=== PATIENT | male | born 1950 | race Hispanic/Latino ===

== ENCOUNTER 2017-06-18 10:18 | Emergency (ER) | payer MEDICARE ==
[~2017-06-18] VITALS: Ht 182.9 cm; Wt 112.5 kg
[~2017-06-18 10:18] MED LIST: Z.0.LIPITOR80 MG PO; Z.0.LISINOPRIL40 MG PO; Z.0.TRICOR145 MG PO
[2017-06-18 10:56] LABS: BASOPHILS # (AUTO) 0.1 (0.0-0.1); BASOPHILS % 0.5 % (0.0-1.0); EOSINOPHILS # (AUTO) 0.2 (0.0-0.4); EOSINOPHILS % 1.4 % (0.0-6.0); HEMATOCRIT 40.5 % (38.2-49.6); HEMOGLOBIN 13.3 g/dL (14.0-18.0); LYMPHOCYTES % 29.2 % (18.0-39.1); MEAN CORPUSCULAR HEMOGLOBIN 30.8 pg (28-32); MEAN CORPUSCULAR HGB CONC 32.8 g/dL (31-35); MEAN CORPUSCULAR VOLUME 93.8 fL (81-99); MONOCYTES # (AUTO) 0.6 (0.2-0.8); MONOCYTES % 5.8 % (4.4-11.3); NEUTROPHILS # (AUTO) 6.2 (2.1-6.9); NEUTROPHILS % 59.2 % (38.7-80.0); PLATELET COUNT 248 x10e3/uL (140-360); RED BLOOD COUNT 4.32 x10e6/uL (4.3-5.7); RED CELL DISTRIBUTION WIDTH 13.6 % (11.7-14.4)
[2017-06-18 11:08] LABS: INR 0.83; PARTIAL THROMBOPLASTIN TIME 23.4 seconds (23.8-35.5); PROTHROMBIN TIME 11.8 seconds (11.9-14.5)
[2017-06-18 11:19] LABS: ALANINE AMINOTRANSFERASE 28 IU/L (0-55); ALBUMIN 3.8 g/dL (3.5-5.0); ALBUMIN/GLOBULIN RATIO 1.2 (0.8-2.0); ALKALINE PHOSPHATASE 57 IU/L (40-150); ANION GAP 11.6 mmol/L (8-16); BLOOD UREA NITROGEN 20 mg/dL (7-26); BUN/CREATININE RATIO 17 (6-25); CARBON DIOXIDE 29 mmol/L (22-29); CHLORIDE 103 mmol/L (98-107); CREATINE KINASE 116 IU/L (30-200); CREATININE, SERUM 1.19 mg/dL (0.72-1.25); EST GLOMERULAR FILTRATION RATE > 60 ML/MIN (60-); GLUCOSE 113 mg/dL (74-118); POTASSIUM 3.6 mmol/L (3.5-5.1); SODIUM 140 mmol/L (136-145)
[2017-06-18 11:25] LABS: TROPONIN I 0.035 ng/mL (0-0.300)
--- NOTE | 2017-06-18 11:28 | Diagnostic Imaging Report ---
PROCEDURE: CHEST SINGLE (PORTABLE) COMPARISON: Patients [facility], DX, CHEST SINGLE (PORTABLE), 06/19/2015, 9:06. INDICATIONS: STATUS POST FALL, DIZZINESS FINDINGS: LUNGS: Increased pulmonary vascularity compatible with mild pulmonary congestion. Right basilar atelectasis. PLEURA: No effusions or pneumothorax. HEART \T\ MEDIASTINUM: The heart is mildly enlarged. BONES \T\ SOFT TISSUES: No acute findings. No obvious rib fractures. CONCLUSION: Mild pulmonary vascular congestion. Eugene Cleaning D.O. Dictated by: Eugene Cleaning D.O. on 06/18/2017 at 11:35 Electronically approved by: Eugene Cleaning D.O. on 06/18/2017 at 11:35
--- NOTE | 2017-06-18 11:28 | Diagnostic Imaging Report ---
EXAMINATION: Head and cervical spine CT without contrast. HISTORY: Status post fall 3 days ago, head trauma on the right side of the head, pain, dizziness COMPARISON: Head CT on 06/19/2015 TECHNIQUE: Multidetector axial images were obtained without contrast from the foramen magnum to the vertex and through the cervical spine. The images were reconstructed using brain and bone algorithms. Thin section brain images were reformatted into coronal and sagittal planes. HEAD CT FINDINGS: Skull: No lytic or blastic lesions. No fractures. Parenchyma: Normal. No mass, hemorrhage or CT evidence of acute vascular insult. Brain volume: Normal for age. Ventricles: No hydrocephalus. Stable Cavum Veli interpositi which represents a normal variation of the anatomy. Arteries: No density suggestive of thrombus. Dural sinuses: No abnormal density. Extra-axial spaces: No abnormal density. Foramen magnum: No mass, Chiari malformation, or basilar invagination. Sella: No obvious mass. Paranasal/mastoid sinuses: Imaged portions unremarkable. CERVICAL SPINE CT FINDINGS: Alignment:Normal alignment and lordosis. Soft tissues: Normal. Ossification of the nuchal ligament. Vertebrae: Normal height and density. No acute fracture, infection or neoplasm. Intervertebral disk degenerative changes: C5-C6: Uncovertebral and facet arthrosis on the left result in severe left foraminal stenoses. Minimal degenerative anterolistheses. IMPRESSION: Head CT: No acute post traumatic intracranial abnormality, particularly no hemorrhage. Cervical spine CT: 1. No acute fractures or dislocations. 2. Chronic severe degenerative foraminal stenosis on the left at C5-C6. Note: Acute postraumatic spinal cord, vascular or ligamentous injuries cannot be excluded on the basis of the current examination. Signed by: Dr. Delia Bynum M.D. on 06/18/2017 11:24 AM
--- NOTE | 2017-06-18 11:45 | Diagnostic Imaging Report ---
PROCEDURE:HAND RIGHT 3 VIEWS AP \T\ LAT COMPARISON:None. INDICATIONS:STATUS POST FALL, RIGHT HAND PAIN FINDINGS: Several bony densities are situated between the proximal aspects of the fourth and fifth metacarpal heads. Findings likely represent small avulsion fractures; age indeterminate. Clinical correlation as to focal site of pain is suggested . There are no dislocations, lytic or blastic lesions. Scattered interphalangeal degenerative changes are present. The bones are well-mineralized. The soft-tissues are unremarkable. CONCLUSION: Bony densities situated between the proximal aspects of the fourth and fifth metacarpals. Eugene Cleaning D.O. Dictated by: Eugene Cleaning D.O. on 06/18/2017 at 11:53 Electronically approved by: Eugene Cleaning D.O. on 06/18/2017 at 11:53
[2017-06-18 13:06] LABS: EOSINOPHILS % (MANUAL) 4 % (0-7); LYMPHOCYTES % (MANUAL) 28 % (19-48); MONOCYTES % (MANUAL) 16 % (3.4-9.0); NEUTROPHILS % (MANUAL) 51 % (40-74); RBC MORPHOLOGY COMMENT NORMAL
[2017-06-18 13:07] LABS: PLATELET ESTIMATE ADEQUATE; PLATELET MORPHOLOGY COMMENT NORMAL
[2017-06-18 13:56] VITALS: BP 128/82
== END 2017-06-18 14:04 | disposition home or self-care (01) ==
LOC: ER 10:18
DX: S06.0X0A Concussion without loss of consciousness, initial encounter (principal); S00.83XA Contusion of other part of head, initial encounter; R42 Dizziness and giddiness; M79.641 Pain in right hand; W18.39XA Other fall on same level, initial encounter; Y92.008 Other place in unspecified non-institutional (private) residence as the place of occurrence of the external cause; I10 Essential (primary) hypertension; K21.9 Gastro-esophageal reflux disease without esophagitis
CPT/HCPCS: 36415; 70450; 71010; 72125; 80053; 82550; 82553; 84484; 85025; 85610; 85730; 93005; 99284

== ENCOUNTER 2018-04-26 14:09 | Emergency (ER) | payer MEDICARE ==
[~2018-04-26] VITALS: Ht 182.9 cm; Wt 112.5 kg
--- OUTSIDE RECORDS SUMMARY | 2018-04-26 14:12 | XMS REPORT ---
Author Author [facility] Address Unknown Phone Unavailable Care Team Providers Care Forming Acid Dumper Name Role Phone Pablo SAUCEDO Unavailable Unavailable Problems This patient has no known problems. Allergies, Adverse Reactions, Alerts This patient has no known allergies or adverse reactions. Medications This patient has no known medications. Results Test Description Test Time Test Comments Text Results Atomic Results Result Comments HAND 3+ VIEWS RIGHT [place] [id number] [place] [id number] Patient Name: PRETTY GUAMAN MR #: [id number] : 1950 Age/Sex: 67/M Req #: [id number] Adm Physician: Ordered by: LELA RIGGS WRESTLING COACH Report #: [id number] Location: ER Room/Bed: Procedure: [id number] DX/HAND 3+ VIEWS RIGHT Exam Date: 06/18/17 Exam Time: 1105 REPORT STATUS: Signed PROCEDURE: HAND RIGHT 3 VIEWS AP T LAT COMPARISON: None. INDICATIONS: STATUS POST FALL, RIGHT HAND PAIN FINDINGS: Several bony densities are situated between the proximal aspects of the fourth and fifth metacarpal heads. Findings likely represent small avulsion fractures; age indeterminate. Clinical correlation as to focal site of pain is suggested . There are no dislocations, lytic or blastic lesions. Scattered interphalangeal degenerative changes are present. The bones are well-mineralized. The soft-tissues are unremarkable. CONCLUSION: Bony densities situated between the proximal aspects of the fourth and fifth metacarpals. Gerard Cleaning D.O. Dictated by: Gerard Cleaning D.O. on 06/18/2017 at 11:53 Electronically approved by: Gerard Cleaning D.O. on 06/18/2017 at 11:53 Dictated By: GERARD CLEANING DO 1153 Transcribed By: ALEXX on 06/18/17 1153 COPY TO: LELA RIGGS NP CT CERVICAL SPINE WO [place] [address] Patient Name: PRETTY GUAMAN MR #: [id number] : 1950 Age/Sex: 67/M Req #: [id number] Adm Physician: Ordered by: LELA RIGGS WRESTLING COACH Report #: [id number] Location: ER Room/Bed: Procedure: [id number] CT/CT CERVICAL SPINE WO Exam Date: 06/18/17 Exam Time: 1045 REPORT STATUS: Signed EXAMINATION: Head and cervical spine CT without contrast. HISTORY: Status post fall 3 days ago, head trauma on the right side of the head, pain, dizziness COMPARISON: Head CT on 06/19/2015 TECHNIQUE: Multidetector axial images were obtained without contrast from the foramen magnum to the vertex and through the cervical spine. The images were reconstructed using brain and bone algorithms. Thin section brain images were reformatted into coronal and sagittal planes. HEAD CT FINDINGS: Skull: No lytic or blastic lesions. No fractures. Parenchyma: Normal. No mass, hemorrhage or CT evidence of acute vascular insult. Brain volume: Normal for age. Ventricles: No hydrocephalus. Stable Cavum Veli interpositi which represents a normal variation of the anatomy. Arteries: No density suggestive of thrombus. Dural sinuses: No abnormal density. Extra-axial spaces: No abnormal density. Foramen magnum: No mass, Chiari malformation, or basilar invagination. Sella: No obvious mass. Paranasal/mastoid sinuses: Imaged portions unremarkable. CERVICAL SPINE CT FINDINGS: Alignment:Normal alignment and lordosis. Soft tissues: Normal. Ossification of the nuchal ligament. Vertebrae: Normal height and density. No acute fracture, infection or neoplasm. Intervertebral disk degenerative changes: C5-C6: Uncovertebral and facet arthrosis on the left result in severe left foraminal stenoses. Minimal degenerative anterolistheses. IMPRESSION: Head CT: No acute post traumatic intracranial abnormality, particularly no hemorrhage. Cervical spine CT: 1. No acute fractures or dislocations. 2. Chronic severe degenerative foraminal stenosis on the left at C5-C6. Note: Acute postraumatic spinal cord, vascular or ligamentous injuries cannot be excluded on the basis of the current examination. Signed by: Dr. Francy Bynum M.D. on 06/18/2017 11:24 AM Dictated By: FRANCY BYNUM MD 23 Transcribed By: ASHLEY on 06/18/171123 COPY TO: LELA RIGGS NP CT BRAIN WO [place] [address] Patient Name: PRETTY GUAMAN MR #: [id number] : 1950 Age/Sex: 67/M Req #: [id number] Adm Physician: Ordered by: LELA RIGGS NP Report #: [id number] Location: Room/Bed: Procedure: [id number] CT/CT BRAIN WO Exam Date: 06/18/17 Exam Time: 1045 REPORT STATUS: Signed EXAMINATION: Head and cervical spine CT without contrast. HISTORY: Status post fall 3 days ago, head trauma on the right side of the head, pain, dizziness COMPARISON: Head CT on 06/19/2015 TECHNIQUE: Multidetector axial images were obtained without contrast from the foramen magnum to the vertex and through the cervical spine. The images were reconstructed using brain and bone algorithms. Thin section brain images were reformatted into coronal and sagittal planes. HEAD CT FINDINGS: Skull: No lytic or blastic lesions. No fractures. Parenchyma: Normal. No mass, hemorrhage or CT evidence of acute vascular insult. Brain volume: Normal for age. Ventricles: No hydrocephalus. Stable Cavum Veli interpositi which represents a normal variation of the anatomy. Josselyn ena: No density suggestive of thrombus. Dural sinuses: No abnormal density. Extra-axial spaces: No abnormal density. Foramen magnum: No mass, Chiari malformation, or basilar invagination. Sella: No obvious mass. Paranasal/mastoid sinuses: Imaged portions unremarkable. CERVICAL SPINE CT FINDINGS: Alignment:Normal alignment and lordosis. Soft tissues: Normal. Ossification of the nuchal ligament. Vertebrae: Normal height and density. No acute fracture, infection or neoplasm. Intervertebral disk degenerative changes: C5-C6: Uncovertebral and facet arthrosis on the left result in severe left foraminal stenoses. Minimal degenerative anterolistheses. IMPRESSION: Head CT: No acute post traumatic intracranial abnormality, particularly no hemorrhage. Cervical spine CT: 1. No acute fractures or dislocations. 2. Chronic severe degenerative foraminal stenosis on the left at C5-C6. Note: Acute postraumatic spinal cord, vascular or ligamentous injuries cannot be excluded on the basis of the current examination. Signed by: Dr. Francy Bynum M.D. on 06/18/2017 11:24 AM Dictated By: FRANCY BYNUM MD 23 Transcribed By: ASHLEY on 06/18/171123 COPY TO: LELA RIGGS WRESTLING COACH [facility] (PORTABLE) [place] [address] Patient Name: PRETTY GUAMAN MR #: [id number] : 1950 Age/Sex: 67/M Req #: [id number] [facility] Physician: Ordered by: LELA RIGGS NP Report #: [id number] Location: ER Room/Bed: Procedure: [id number] DX/CHEST SINGLE (PORTABLE) Exam Date: 06/18/17 Exam Time: 1105 REPORT STATUS: Signed PROCEDURE: CHEST SINGLE (PORTABLE) COMPARISON: [facility], DX, CHEST SINGLE (PORTABLE), 06/19/2015, 9:06. INDICATIONS: STATUS POST FALL, DIZZINESS FINDINGS: LUNGS: Increased pulmonary vascularity compatible with mild pulmonary congestion. Right basilar atelectasis. PLEURA: No effusions or pneumothorax. HEART T MEDIASTINUM: The heart is mildly enlarged. BONES T SOFT TISSUES: No acute findings. No obvious rib fractures. CONCLUSION: Mild pulmonary vascular congestion. Gerard Cleaning D.O. Dictated by: Gerard Cleaning D.O. on 06/18/2017 at 11:35 Electronically approved by: Gerard Cleaning D.O. on 06/18/2017 at 11:35 Dictated By: GERARD CLEANING DO 1135 Transcribed By: ALEXX on 06/18/17 1138 COPY TO: LELA RIGGS NP
[2018-04-26] MEDS ORDERED: CEFTRIAXONE SOD 1 GM VIAL IM NR (14:30)
[2018-04-26] MEDS ORDERED: SODIUM CHLORIDE 0.9% 500ML 500 ML IV ONE (14:30)
[2018-04-26] MEDS ORDERED: ACETAMINOPHEN 1000 MG/100 ML IV NR (14:30)
[2018-04-26 15:19] LABS: BASOPHILS % 0.7 % (0.0-1.0); EOSINOPHILS % 0.2 % (0.0-6.0); HEMATOCRIT 43.4 % (38.2-49.6); HEMOGLOBIN 14.7 g/dL (14.0-18.0); LYMPHOCYTES # (AUTO) 0.6 (1.0-3.2); LYMPHOCYTES % 14.3 % (18.0-39.1); MEAN CORPUSCULAR HEMOGLOBIN 31.5 pg (28-32); MEAN CORPUSCULAR HGB CONC 33.9 g/dL (31-35); MEAN CORPUSCULAR VOLUME 92.9 fL (81-99); MONOCYTES # (AUTO) 0.3 (0.2-0.8); MONOCYTES % 6.9 % (4.4-11.3); NEUTROPHILS # (AUTO) 3.1 (2.1-6.9); NEUTROPHILS % 75.9 % (38.7-80.0); PLATELET COUNT 133 x10e3/uL (140-360); RED BLOOD COUNT 4.67 x10e6/uL (4.3-5.7)
[2018-04-26 15:34] LABS: ALBUMIN 4.1 g/dL (3.5-5.0); ANION GAP 19.4 mmol/L (8-16); CALCIUM 9.3 mg/dL (8.4-10.2); CREATININE, SERUM 1.35 mg/dL (0.72-1.25); POTASSIUM 3.4 mmol/L (3.5-5.1)
[2018-04-26 15:41] LABS: CREATINE KINASE MB 0.5 ng/mL (0-5.0)
[2018-04-26 16:08] LABS: CLARITY,URINE CLEAR (CLEAR); COLOR,URINE YELLOW (YELLOW)
[2018-04-26 16:09] LABS: BACTERIA,URINE RARE /HPF; BILIRUBIN,URINE NEGATIVE (NEGATIVE); EPITHELIAL CELLS,URINE RARE /LPF; KETONES,URINE NEGATIVE (NEGATIVE); LEUKOCYTE ESTERASE ,URINE NEGATIVE (NEGATIVE); NITRITE,URINE NEGATIVE (NEGATIVE); PROTEIN,URINE DIPSTICK TRACE (NEGATIVE); RBC,URINE 0-5 /HPF (0-5); URINE UROBILINOGEN 0.2 mg/dL (0.2 - 1); WBC,URINE (MAN) 0-5 /HPF (0-5)
--- NOTE | 2018-04-26 17:14 | Diagnostic Imaging Report ---
EXAM: CT Abdomen and Pelvis WITH contrast INDICATION: ^abd ^[id number] ^[id number] COMPARISON: None. TECHNIQUE: Abdomen and pelvis were scanned utilizing a multidetector helical scanner from the lung base to the pubic symphysis after administration of IV contrast. Coronal and sagittal reformations were obtained. Routine protocol was performed. Scan was performed when during portal venous phase. IV CONTRAST: 100 mL of Isovue-370 ORAL CONTRAST: None RADIATION DOSE: Total DLP: 926.2 mGy*cm Estimated effective dose: (DLP x 0.015 x size factor) mSv COMPLICATIONS: None FINDINGS: LINES and TUBES: None. LOWER THORAX: Extensive coronary artery calcifications. Minimal atelectasis in both lung bases. HEPATOBILIARY: Diffuse hepatic steatosis. No focal hepatic lesions. No biliary ductal dilation. GALLBLADDER: No radio-opaque stones or sludge. No wall thickening. SPLEEN: No splenomegaly. PANCREAS: No focal masses or ductal dilatation. ADRENALS: No adrenal nodules KIDNEYS/URETERS: Kidneys enhance symmetrically. No hydronephrosis. No cystic or solid mass lesions. No stones. Mild nonspecific bilateral perinephric fat stranding. GI TRACT: No abnormal distention, wall thickening, or evidence of bowel obstruction. Appendix is not visualized. No inflammatory changes in the right lower quadrant. PELVIC ORGANS/BLADDER: Moderate distention of the urinary bladder without calcified stones. The prostate is normal in caliber associated with a few coarse calcifications. LYMPH NODES: No lymphadenopathy. VESSELS: Unremarkable. PERITONEUM / RETROPERITONEUM: No free air or fluid. BONES: Unremarkable. SOFT TISSUES: Unremarkable. IMPRESSION: No acute abnormality within the abdomen and pelvis. Signed by: Dr. Justyna Lay M.D. on 04/26/2018 5:10 PM
[2018-04-26] MEDS ORDERED: TYLENOL WITH C1 EACH PO (17:56)
[2018-04-26] MEDS ORDERED: CEFDINIR300 MG PO (17:56)
[2018-04-26] MEDS ORDERED: SODIUM CHLORIDE 0.9% 50ML 50 ML ONE (19:55)
[2018-04-26] MEDS ORDERED: IOPAMIDOL 370 MG/ML 200 ML INFUS..BTL INJ ONE (19:56)
[2018-05-02] MEDS ORDERED: FAMOTIDINE20 MG PO (07:11)
[2018-05-02] MEDS ORDERED: METFORMIN HCL500 MG PO (07:11)
[2018-05-02] MEDS ORDERED: CARBIDOPA-LEVO1 EAC1 PO (07:11)
== END 2018-04-26 18:17 | disposition home or self-care (01) ==
LOC: ER 14:09
DX: R50.9 Fever, unspecified (principal); R10.9 Unspecified abdominal pain; M54.5 Low back pain; N30.90 Cystitis, unspecified without hematuria
CPT/HCPCS: 36415; 74177; 80053; 81001; 82550; 82553; 83605; 84484; 85025; 87040; 87086; 99284; J0696; J7040; Q9967

== ENCOUNTER 2018-04-29 07:05 | Inpatient (IN) | payer MEDICARE ==
[~2018-04-29] VITALS: Ht 182.9 cm; Wt 112.9 kg
[~2018-04-29 07:05] MED LIST changes: +CEFDINIR300 MG PO; +TYLENOL WITH C1 EACH PO
[2018-04-29] MEDS ORDERED: SODIUM CHLORIDE 0.9% 1000ML 1,000 ML IV STA (07:16)
[2018-04-29] MEDS ORDERED: MORPHINE SULFATE INJ 4 MG/ML INJ IV STA (07:16)
[2018-04-29] MEDS ORDERED: ONDANSETRON HCL INJ 2 MG/ML VIAL IV ONE (07:30)
[2018-04-29] MEDS ORDERED: KETOROLAC TROMETHAMINE 30 MG/ML VIAL IV ONE (07:30)
[2018-04-29] MEDS ORDERED: FAMOTIDINE 20 MG/2 ML VIAL IV ONE (07:30)
[2018-04-29] MEDS ORDERED: DEXAMETHASONE SOD PHOS 10 MG/1 ML VIAL IV ONE (07:30)
[2018-04-29 08:21] LABS: BASOPHILS # (AUTO) 0.1 (0.0-0.1); EOSINOPHILS % 0.5 % (0.0-6.0); HEMATOCRIT 42.8 % (38.2-49.6); HEMOGLOBIN 14.3 g/dL (14.0-18.0); LYMPHOCYTES # (AUTO) 1.7 (1.0-3.2); LYMPHOCYTES % 29.6 % (18.0-39.1); MEAN CORPUSCULAR HEMOGLOBIN 30.8 pg (28-32); MEAN CORPUSCULAR HGB CONC 33.4 g/dL (31-35); MEAN CORPUSCULAR VOLUME 92.2 fL (81-99); MONOCYTES # (AUTO) 0.4 (0.2-0.8); MONOCYTES % 7.3 % (4.4-11.3); NEUTROPHILS # (AUTO) 3.5 (2.1-6.9); NEUTROPHILS % 60.4 % (38.7-80.0); RED BLOOD COUNT 4.64 x10e6/uL (4.3-5.7); RED CELL DISTRIBUTION WIDTH 12.9 % (11.7-14.4)
[2018-04-29 08:29] LABS: PLATELET COUNT 50 x10e3/uL (140-360)
[2018-04-29 08:44] LABS: ALBUMIN 3.6 g/dL (3.5-5.0); ANION GAP 13.7 mmol/L (8-16); CALCIUM 9.2 mg/dL (8.4-10.2); CREATININE, SERUM 1.44 mg/dL (0.72-1.25); POTASSIUM 3.7 mmol/L (3.5-5.1)
--- NOTE | 2018-04-29 08:52 | Diagnostic Imaging Report ---
PROCEDURE:X-RAY LUMBAR SPINE, TWO VIEWS COMPARISON:None. INDICATIONS:SCIATICA FINDINGS: There are 5 lumbar-type vertebral bodies. The vertebral bodies are well-aligned without evidence of spondylolisthesis. There are no fractures, lytic or blastic lesions. Mild disc space narrowing at L5-S1. Mild scattered osteophytosis of the spine. The sacroiliac joints are unremarkable. CONCLUSION: Mild degenerative changes of the spine. Eugene Cleaning D.O. Dictated by: Eugene Cleaning D.O. on 04/29/2018 at 9:01 Electronically approved by: Eugene Cleaning D.O. on 04/29/2018 at 9:01
--- NOTE | 2018-04-29 08:57 | Diagnostic Imaging Report ---
PROCEDURE:HIP RIGHT 2-3 VW (+/- PELVIS) COMPARISON:None. INDICATIONS:SCIATICA FINDINGS: BONES: Normal mineralization. No acute fracture or dislocation. Mild joint space narrowing involving both hips. As seen on the AP pelvis the joint space narrowing appears symmetric. No erosions or sclerosis of the SI joints. SOFT TISSUES:Negative. OTHER:Negative. CONCLUSION:Mild joint space narrowing. Eugene Cleaning D.O. Dictated by: Eugene Cleaning D.O. on 04/29/2018 at 9:05 Electronically approved by: Eugene Cleaning D.O. on 04/29/2018 at 9:05
[2018-04-29] MEDS ORDERED: LACTULOSE SYRUP 20 GM/30 ML UDC PO PRN (10:30)
[2018-04-29] MEDS ORDERED: DIPHENHYDRAMINE HCL INJ 50 MG/ML VIAL IV PRN (10:30)
[2018-04-29] MEDS ORDERED: HYDROCODONE/APAP 7.5MG-325MG 1 EA TAB PO PRN (10:30)
[2018-04-29] MEDS ORDERED: ENALAPRILAT IV INJ 1.25 MG/ML VIAL IV PRN (10:30)
[2018-04-29] MEDS ORDERED: ZOLPIDEM TARTRATE 5 MG TAB PO PRN (10:30)
[2018-04-29] MEDS ORDERED: CLONIDINE HCL 0.1 MG TAB PO PRN (10:30)
[2018-04-29] MEDS ORDERED: DIPHENHYDRAMINE HCL 25 MG CAP PO PRN (10:30)
[2018-04-29] MEDS ORDERED: IBUPROFEN 400 MG TAB PO PRN (10:30)
[2018-04-29] MEDS ORDERED: ONDANSETRON HCL INJ 2 MG/ML VIAL IV PRN (10:30)
[2018-04-29 10:42] LABS: CLARITY,URINE SL CLOUDY (CLEAR); COLOR,URINE YELLOW (YELLOW); KETONES,URINE NEGATIVE (NEGATIVE); LEUKOCYTE ESTERASE ,URINE NEGATIVE (NEGATIVE); NITRITE,URINE NEGATIVE (NEGATIVE); PROTEIN,URINE DIPSTICK 2+ (NEGATIVE); URINE UROBILINOGEN 0.2 mg/dL (0.2 - 1)
[2018-04-29 10:43] LABS: BILIRUBIN,URINE NEGATIVE (NEGATIVE)
[2018-04-29 10:45] LABS: BACTERIA,URINE RARE /HPF; EPITHELIAL CELLS,URINE RARE /LPF; RBC,URINE 0-5 /HPF (0-5)
[2018-04-29 10:46] LABS: MUCUS,URINE RARE (RARE)
[2018-04-29 13:38] LABS: BLAST CELLS % MANUAL 4; LYMPHOCYTES % (MANUAL) 15 % (19-48); MONOCYTES % (MANUAL) 7 % (3.4-9.0); NEUTROPHILS % (MANUAL) 66 % (40-74)
[2018-04-29 13:39] LABS: ANISOCYTOSIS SLIGHT; PLATELET ESTIMATE SLIGHTLY DECREASED; PLATELET MORPHOLOGY COMMENT NORMAL; POIKILOCYTOSIS SLIGHT; RBC MORPHOLOGY COMMENT NORMAL
[2018-04-29 13:50] VITALS: BP 158/82
[2018-04-29 13:52] VITALS: BP 158/82
[2018-04-29 15:50] VITALS: BP 139/76
[2018-04-29] MEDS: FAMOTIDINE 20 MG TAB PO SCH (16:55)
[2018-04-29] MEDS: MORPHINE SULFATE INJ 4 MG/ML INJ IV PRN (20:24)
--- NOTE | 2018-04-29 20:44 | Consultation ---
DATE OF CONSULTATION: April 29, 2018 REASON FOR CONSULTATION: Gait instability. HISTORY: The patient is a 68-year-old man, who presents with a 3-month history of low back pain, which does not radiate into the legs. However, he has been having instability of gait out of proportion to his back pain for the past 3 months. Apparently, on Friday, he felt that he could not move his legs and stand. He was brought to the emergency room over the weekend and was admitted. A lumbar CT was performed, which was relatively unremarkable. This was followed by lumbar MRI today, which revealed moderately severe spinal stenosis at L5-S1 and I was consulted. The patient has been intermittently confused since Friday according to his daughter. He denies any neck pain or radiating pain down the arms or legs. He has a great deal of difficulty ambulating. EXAMINATION: The patient is oriented x2. His speech is fluent. Cranial nerve examination is unremarkable. Motor strength is preserved in the arms. He had a great deal of difficulty sitting up in bed and requires 2-person assistance to sit up. He tends to fall backwards, when not supported. He can stand with 1-person assistance, but some marked gait instability and requires to hold onto the wall and furniture in order to prevent falling. He can only take a few steps and then, sit down. Motor tone is increased in the legs. Deep tendon reflexes are 3+ in the biceps and triceps and 4+ in the patellar tendons and 3+ in the Achilles tendons. Plantar response are flexor. IMPRESSION: L5-S1 lumbar spinal stenosis is the least of his problems. His gait instability is far out of proportion to the spinal stenosis in the lumbar region. Furthermore, his severe hyperreflexia in the case of an upper motor neuron type of problem. His confusion is also alarming. We will proceed with a magnetic resonance imaging of the brain, cervical and thoracic spine to investigate the rest of his neuro axis in search of a lesion that would explain his upper motor neuron deficits. Job#: [id number]
--- NOTE | 2018-04-29 20:47 | Diagnostic Imaging Report ---
History: Confusion and gait instability. Comparison studies: CT brain from 06/18/2017. Technique: Sagittal , axial and coronal T1; axial DWI, FLAIR, GRE, T2, Coronal FLAIR. Intravenous contrast: None Findings: Scalp: Normal in signal . No masses . Bone marrow: Normal in signal intensity. Brain sulci: Prominent. Ventricles: Cavum the innominate interpositum, normal anatomic variant. Moderate compensated dilatation due to volume loss. No hydrocephalus . Parenchyma: Nonspecific few, scattered supratentorial white matter T2/FLAIR hyperintense foci are likely related to small vessel ischemic changes. Apparent increased diffusivity in bilateral occipital lobe without corresponding T2/FLAIR signal abnormality is an artifact. No masses, hemorrhage, acute or chronic vascular insults. Suprasellar region: Partial empty sella. Craniocervical junction: Patent foramen magnum. No Chiari malformation . Vessels: Normal flow-voids in the arteries and sinuses. IMPRESSION: 1. No acute intracranial abnormality. 2. Mild supratentorial white matter microvascular ischemic changes. 3. Generalized age-related cerebral volume loss. Signed by: Dr. Toshia Hernandez M.D. on 04/29/2018 8:44 PM
[2018-04-29 22:38] VITALS: BP 139/76
[2018-04-30] VITALS (8 sets, daily range): BP systolic 117–154; BP diastolic 58–94
[2018-04-30] MEDS: FAMOTIDINE 20 MG TAB PO SCH ×2 (08:35→17:02)
--- NOTE | 2018-04-30 10:25 | Diagnostic Imaging Report ---
MRI CERVICAL, THORACIC AND LUMBAR SPINE WITHOUT CONTRAST History: Confusion and gait instability Comparison studies: None Technique: Cervical spine: Sagittal T1, T2 and IR, axial T2 and axial gradient echo . Thoracic spine: Sagittal T1, T2 and IR, axial T1 and T2. Lumbar spine: Coronal, sagittal and axial T2. Sagittal T1 and STIR, axial T2 and proton density. Intravenous contrast: None Findings: Alignment: Normal cervical and lumbar lordosis. Normal thoracic kyphosis. No scoliosis. Cervicomedullary junction: No abnormalities. Patent foramen magnum. Soft tissues: No T2 hyperintense inflammatory changes. Spinal cord: Normal in size and signal from the foramen magnum through the conus medullaris at L2 superior endplate Vertebrae: Normal in height and signal intensity. No fractures, infection or neoplasm. Degenerative changes: Cervical spine: C2-C3: Small central disc osteophyte complex with patent canal and foramina C3-C4: Disc degeneration with loss of T2 signal. Central disc osteophyte complex and bilateral uncinate process hypertrophy results in mild canal stenosis and mild bilateral foraminal narrowing C4-C5: Disc degeneration with loss of T2 signal. Asymmetric right disc osteophyte complex, bilateral uncinate process and facet hypertrophy results in mild canal stenosis and mild bilateral foraminal narrowing C5-C6: Disc degeneration with loss of T2 signal. Diffuse disc osteophyte complex, bilateral uncinate process hypertrophy and facet hypertrophy results in mild canal stenosis, mild right and moderate left foraminal narrowing C6-C7: Disc degeneration with loss of T2 signal. Central disc osteophyte complex and bilateral uncinate process hypertrophy results in mild canal stenosis and mild bilateral foraminal C7-T1: No abnormalities. Thoracic spine: No significant degenerative changes with patent canal and foramina. Lumbar spine: L1-L2: Patent canal and foramina. L2-L3: Mild diffuse disc bulge, mild facet hypertrophy and ligamentum flavum thickening results in mild canal stenosis and mild bilateral foraminal narrowing. L3-L4: Mild disc bulge and mild facet hypertrophy and ligamentum flavum thickening results in mild canal stenosis and no significant foraminal narrowing. At L4-5: Mild disc degeneration with loss of T2 signal. Diffuse disc bulge, mild facet hypertrophy results in mild canal stenosis and mild bilateral foraminal narrowing. L5-S1: Disc degeneration with loss of T2 signal. Asymmetric right disc bulge, severe bilateral facet hypertrophy and ligamentum flavum thickening results in moderate canal stenosis, obliteration of the right subarticular recesses and moderate bilateral foraminal narrowing more prominent on the right. Fluid at the bilateral facet joints more prominent on the right secondary to synovitis. IMPRESSION: 1. Moderate left degenerative foraminal narrowing at C5-6 secondary to left uncinate process hypertrophy and facet hypertrophy. 2. Other mild degenerative changes of the cervical spine results in mild multilevel canal stenosis and foraminal narrowing as detailed above. 3. No significant degenerative changes of the thoracic spine with patent canal and foramina. 4. Moderate canal stenosis, narrowing of the right subarticular recess and moderate bilateral foraminal narrowing at L5-S1 secondary to asymmetric right disc bulge and severe posterior element hypertrophy. Synovitis changes at L5-S1 more significant on the right. 5. Mild multilevel degenerative canal stenosis and foraminal narrowing from L2 through L5. Signed by: DR Sunday Hernández M.D. on 04/30/2018 10:21 AM
[2018-04-30] MEDS: MORPHINE SULFATE INJ 4 MG/ML INJ IV PRN (17:27)
[2018-04-30] MEDS: CARBIDOPA/LEVODOPA 25/100 TAB PO SCH ×2 (17:27→21:03)
--- NOTE | 2018-04-30 21:14 | Consultation ---
DATE OF CONSULTATION: April 30, 2018 NEUROLOGY CONSULTATION HISTORY OF PRESENT ILLNESS: Mr. Jose A Atkins is a 68-year-old right hand dominant man with past medical history significant for hypertension, hyperlipidemia, and Parkinson's disease, admitted to [facility] on April 29, 2018, with low back pain which is described as follows: The patient endorses pain present in the low back without radiation. The pain is described as burning and is rated a 5 out of 10. Mr. Naranjo reports his low back pain is intermittent. He is not aware of anything that worsens his low back pain. Nothing makes his low back pain better. The patient reports the low back pain has been present for approximately 3 months. Mr. Naranjo does not endorse weakness in the arms or legs, dysphasia, shortness of breath, atrophy or spasm of the muscles, or fasciculations. The patient does report gait impairment which is further described as an unsteady sensation when walking. He reports poor balance as well. His states his movements are "very slow." The patient and both report a resting tremor affecting the right hand and arm. Mr. Jose A Atkins does not report burning pain, tingling, pins and needles sensation, or numbness affecting the feet or forelegs. He does not report dizziness or visual disturbance. The patient does endorse 3 to 4 falls in recent months without injury. The patient's reports he has been confused while in the hospital. She attributes this to the pain medication (intravenous morphine) received by the patient. At home, the patient is never confused. Over the past 3 months, he has required some assistance with dressing and walking secondary to low back pain. Otherwise, prior to 3 months ago, the patient was independent in all activities of daily living. The patient's does not report difficulty recalling the names of family members or close friends. She does not report repetition by Mr. Jose A Atkins. Occasionally, the patient will misplace items (keys, shoes, et cetera). The patient has not driven in 3 months secondary to low back pain. Prior to this, he drove without difficulty. Mr. Jose A Atkins makes and remembers his own appointments. His reports helping the patient with his medications because sometimes he forgets to take them. Mr. Jose A Atkins was diagnosed with Parkinson's disease approximately [address] Shiv New. The patient was prescribed Sinemet 25-100 mg by mouth three times daily. It is unclear whether or not the patient is taking this medication at present. It is not listed amongst his home medications. The patient's reports he should be taking it. REVIEW OF SYSTEMS: Impairment of balance and gait, low back pain, multiple falls, confusion, resting tremor, bradykinesia. Otherwise the 12 point review of systems is negative. PAST MEDICAL HISTORY: Hypertension, hyperlipidemia, recently diagnosed Parkinson's disease. PAST SURGICAL HISTORY: None. PAST HOSPITALIZATIONS: None. FAMILY HISTORY: The patient's paternal and maternal grandparents are . Their medical histories are unknown. The patient's father and mother are from hypertension. Mr. Naranjo had 6 brothers and 1 sister. One brother is from a stroke. The remaining 5 brothers and 1 sister are alive. Their medical histories are unknown. Mr. Jose A Atkins has 5 children, 2 sons and 3 daughters. All are alive and reportedly healthy. SOCIAL HISTORY: The patient is . He is retired. Neither the patient nor his report current or prior tobacco, alcohol, or recreational drug use. HOME MEDICATIONS: Atorvastatin 80 mg by mouth daily, Omnicef 300 mg by mouth twice daily, fenofibrate 145 mg by mouth daily, lisinopril 40 mg by mouth daily. ALLERGIES: NO KNOWN DRUG ALLERGIES. NO KNOWN FOOD ALLERGIES. NO KNOWN ALLERGIES TO LATEX. NO KNOWN ALLERGIES TO IODINE OR OTHER CONTRAST MATERIALS. PHYSICAL EXAMINATION: VITAL SIGNS: Height 72 inches, weight 259 pounds, BMI 35.2 kg per meter squared. Blood pressure 127/77 mmHg. Pulse 78 beats per minute. Respiratory rate 18 breaths per minute. Oxygen saturation 92% on room air. GENERAL: The patient is drowsy and mildly confused. He does not appear distressed. Obese. HEENT: Normocephalic, atraumatic. Pupils are pinpoint. Moist mucous membranes. NECK: Supple. No appreciable thyromegaly. No appreciable carotid bruits. CARDIOVASCULAR: S1, S2, regular rate and rhythm. No murmurs, rubs, or gallops. RESPIRATORY: Clear to auscultation bilaterally. No wheezes, rhonchi, or rales. EXTREMITIES: The skin is warm and dry. No clubbing, cyanosis, or edema. The posterior tibial and dorsalis pedis pulses are 1+ and symmetric. SKIN: No rashes or lesions. Absence of hair over the feet and distal forelegs. NEUROLOGIC: Memory/Attention: The patient is drowsy and mildly confused. Cranial Nerves: Cranial nerve 1--Not tested. Cranial nerve 2, 3, 4, and 6--Pupils are pinpoint. Extraocular movements are intact with the exception of impairment of upward gaze. No nystagmus. Cranial nerve 5--Sensation to light touch and pinprick is intact in the bilateral V1 through V3 distributions. Strength of the temporalis and masseter muscles is within normal limits. Cranial nerve 7--The face is asymmetric on the left, but all facial movements are symmetric. Strength is within normal limits. Cranial nerve 8--Hearing is diminished to finger rub bilaterally. Cranial nerve 9, 10--The soft palate elevates equally and symmetrically. Cranial nerve 11--Normal strength of the bilateral sternocleidomastoid and trapezius muscles. Cranial nerve 12--The tongue protrudes midline and moves symmetrically from side to side. Strength: Bulk is normal. Strength is 5/5 in the bilateral deltoids, biceps, triceps, wrist flexors and extensors, finger flexors and extensors, intrinsic hand muscles, hip flexors, knee flexors and extensors, ankle dorsiflexion and plantar flexion, and intrinsic foot muscles. Tone is increased in both arms and both legs, left greater than right, with cogwheeling in both arms. DTRs: Deep tendon reflexes are 3+ and symmetric at the triceps, biceps, brachioradialis, and patellas. Deep tendon reflexes are absent and symmetric at the Achilles. Plantar responses are flexor bilaterally. Sensation: Sensation is intact to light touch and pinprick in both arms and both legs. Cerebellar: Yftxwd-[id number]-ilvdrn and heel-hickey movements are slowed but otherwise intact without dysmetria or other impairment. There is no significant segmental hypokinesis with finger or toe tapping bilaterally. Gait: Attempted to have the patient walk with a walker. Positive freezing. The patient could not initiate gait. Speech: Spontaneous speech is normal without appreciable dysarthria or aphasia. Repetition is intact. Positive for mild hypophonia. Involuntary Movements: The pill-rolling tremor is noted in the left hand. Pronator Drift: None. LABORATORY DATA: The patient's comprehensive metabolic panel is significant for a sodium of 134, chloride of 97, creatinine of 1.44, estimated GFR of 48, glucose of 137, elevated liver enzymes with AST of 181 and ALT of 128, and globulin of 3.6. The CBC with differential and platelets reveals a white blood cell count of 5.77 with a normal differential. The hemoglobin and hematocrit are 14.3 and 42.8, respectively. The platelet count is 50. A urinalysis was significant for slightly cloudy urine with a specific gravity of 1.030, 2+ protein, 1+ blood, and 1 to 5 coarse granular casts. DIAGNOSTIC STUDIES: Electrocardiogram April 29, 2018: Normal sinus rhythm at 95 beats per minute. X-ray of the lumbar spine April 29, 2018: Mild degenerative changes of the spine. Hip x-ray April 29, 2018: Mild joint space narrowing. MRI of the cervical, thoracic, and lumbar spine April 29, 2018: 1. Moderate left degenerative foraminal narrowing at C5-6 secondary to left uncinate process hypertrophy and facet hypertrophy. 2. Other mild degenerative changes of the cervical spine result in mild multilevel canal stenosis and foraminal narrowing as detailed above. 3. No significant degenerative changes of the thoracic spine with patent canal and foramina. 4. Moderate canal stenosis, narrowing of the right subarticular recess and moderate bilateral foraminal narrowing at L5-S1 secondary to asymmetric right disk bulge and severe posterior element hypertrophy. Synovitis changes at L5-S1 more significant on the right. 5. Mild multilevel degenerative canal stenosis and foraminal narrowing from L2 through L5. MRI of the brain without contrast April 29, 2018: On my review, there is no evidence of recent large territorial ischemia, hemorrhage, mass, or mass effect. There is diffuse cerebral atrophy, appropriate for age. There are a few scattered nonspecific T2/FLAIR hyperintense foci of the supratentorial white matter compatible with mild chronic small-vessel ischemic disease. ASSESSMENT AND PLAN: Mr. Jose A Atkins is a 68-year-old man with past medical history significant for hypertension, hyperlipidemia, and recently diagnosed Parkinson's disease, admitted to [facility] on April 29, 2018, with back pain. The MRI of the lumbar spine revealed moderate spinal canal stenosis at L5-S1, for which Dr. River Sanchez was consulted. However, through his evaluation, Dr. Sanchez determined the patient's symptoms were far out of proportion to the findings on the MRI of the lumbar spine. Therefore, a neurological consultation was requested. On neurological examination, the patient is mildly confused, has impairment of upward gaze, has increased tone in all 4 extremities, left greater than right, with cogwheeling in both arms, has slowness of movements overall, and positive freezing when attempting to initiate gait. Lastly, the patient's voice is mildly hypophonic. Mr. Jose A Atkins is noted to have a pill-rolling tremor affecting the left hand as well. The patient's laboratory data and other diagnostic studies have been reviewed and are documented above. As stated above, the patient does have a diagnosis of Parkinson's disease made approximately [address] New. Many of the findings on the patient's neurological examination can be attributed to Parkinson's disease, such as: Increased tone in the extremities, slowness of movement, impairment of gait and balance, and the pill-rolling tremor, to name a few. According to the patient's , Mr. Jose A Atkins is supposed to be taking Sinemet 25-100 mg by mouth three times daily. However, based on his neurological examination, it is apparent the patient has not taken this medication in at least 24 or more hours. Therefore, recommendations are as follows: 1. Treatment with Sinemet 25-100 mg by mouth three times daily will be resumed, first dose now. 2. Mr. Naranjo will be reassessed in approximately 24 hours to determine which of his symptoms improve on Sinemet and which do not. 3. While in the hospital, the patient has been noted to be mildly to moderately confused. As the patient's does not endorse symptoms suspicious for dementia at home, it must be concluded the patient's confusion is secondary to medication effect. Therefore, it is recommended treatment with sedative/hypnotic and pain medications be limited as these will alter the patient's sensorium and impair his neurological examination. 4. Defer treatment of the remaining medical comorbidities to the primary and other services following the patient. Thank you for this consultation. I will continue to follow the patient while he remains in the hospital. Time spent: 70 minutes. Job#: [id number] [email or web address]
[2018-05-01] VITALS (7 sets, daily range): BP systolic 136–167; BP diastolic 78–85
[2018-05-01] MEDS ORDERED: CYCLOBENZAPRINE HCL 10 MG TAB PO PRN (07:00)
[2018-05-01] MEDS: GABAPENTIN 100 MG CAP PO SCH ×2 (07:00→08:15)
[2018-05-01 07:22] LABS: BASOPHILS # (AUTO) 0.1 (0.0-0.1); EOSINOPHILS % 0.3 % (0.0-6.0); HEMATOCRIT 42.1 % (38.2-49.6); HEMOGLOBIN 14.1 g/dL (14.0-18.0); LYMPHOCYTES # (AUTO) 4.1 (1.0-3.2); LYMPHOCYTES % 40.8 % (18.0-39.1); MEAN CORPUSCULAR HEMOGLOBIN 30.7 pg (28-32); MEAN CORPUSCULAR HGB CONC 33.5 g/dL (31-35); MEAN CORPUSCULAR VOLUME 91.5 fL (81-99); MONOCYTES # (AUTO) 1.1 (0.2-0.8); MONOCYTES % 11.3 % (4.4-11.3); NEUTROPHILS # (AUTO) 4.3 (2.1-6.9); NEUTROPHILS % 43.2 % (38.7-80.0); PLATELET COUNT 67 x10e3/uL (140-360); RED CELL DISTRIBUTION WIDTH 12.9 % (11.7-14.4)
[2018-05-01 07:27] LABS: CHOL/HDL RATIO 5.2 (3.9-4.7)
--- NOTE | 2018-05-01 07:29 | History and Physical ---
PRIMARY CARE PHYSICIAN: Dr. Valadez CHIEF COMPLAINT: Lower back pain. HISTORY OF PRESENT ILLNESS: A 68-year-old man with a history of Parkinson disease, now developing lower back pain for the past 2 weeks with difficulty in walking. Therefore, he came to the hospital. Here imaging has been performed. The patient was seen by neurosurgery. MRI of the cervical, thoracic and lumbar spine were obtained, which showed moderate spinal canal stenosis in the lumbar region and lumbar synovitis. The patient is currently comfortable in bed after treatment with medication. There has been no falls at home per his at bedside. PAST MEDICAL HISTORY: Obesity, Parkinson disease, atypical chest pain, hypertension, hyperlipidemia, perianal fistula, perianal pain, chronic urinary retention. PAST SURGICAL HISTORY: Per his , no surgeries in the past. ALLERGIES: PER ELECTRONIC MEDICAL RECORD. FAMILY HISTORY/SOCIAL HISTORY: Patient is . Has 5 children. No alcohol, illicits or cigarettes. MEDICATIONS: Per electronic medical record. REVIEW OF SYSTEMS: Unreliable. PHYSICAL EXAMINATION VITAL SIGNS: Have been reviewed. GENERAL: A tired-appearing man resting in bed. HEENT: Anicteric. CARDIOVASCULAR: Normal S1 and S2. LUNGS: He has moderate breath sounds. ABDOMEN: Soft, nontender and nondistended. BACK: Nontender back. EXTREMITIES: No edema. NEUROLOGICAL: He is awake. He has a baseline tremor. He is oriented to himself. He moves all extremities. SKIN: Dry. PSYCHIATRIC: Flat affect. LABS: Reviewed. MEDICATIONS: Reviewed. ASSESSMENT: This is a 68-year-old man with: 1. Moderate spinal canal stenosis in the lumbar region. 2. Lumbar synovitis. 3. Moderate degenerative foraminal narrowing at the cervical C5-C6 region. 4. Hypertension. 5. Hyperlipidemia. 6. Obesity. 7. Hyperglycemia. 8. Acute kidney injury. 9. Acute transaminitis. 10. Parkinson disease. PLAN 1. Pain control with morphine. 2. Start Flexeril and gabapentin for neuropathic pain. 3. Continue Sinemet for Parkinson disease. 4. Continue antihypertensive medication. 5. Obtain hemoglobin A1c and lipid panel screening. 6. Physical therapy consultation. 7. Recheck LFTs and renal function today. 8. May need to minimize ibuprofen if renal function is still depressed. 9. Gentle rehydration with normal saline at 60 mL an hour. 10. Recheck labs now. 11. Skilled facility placement for rehab needs. 12. I have discussed the case with the patient and at bedside. Job#: [id number] [email or web address]
[2018-05-01] MEDS: FAMOTIDINE 20 MG TAB PO SCH ×3 (07:30→16:30)
[2018-05-01 07:47] LABS: THYROID STIMULATING HORMONE 2.015 uIU/mL (0.350-4.940)
[2018-05-01 07:58] LABS: ANION GAP 12.8 mmol/L (8-16); BLOOD UREA NITROGEN 19 mg/dL (7-26); BUN/CREATININE RATIO 20 (6-25); CALCIUM 8.7 mg/dL (8.4-10.2); CARBON DIOXIDE 25 mmol/L (22-29); CHLORIDE 101 mmol/L (98-107); CREATININE, SERUM 0.96 mg/dL (0.72-1.25); EST GLOMERULAR FILTRATION RATE > 60 ML/MIN (60-); GLUCOSE 113 mg/dL (74-118); POTASSIUM 3.8 mmol/L (3.5-5.1); SODIUM 135 mmol/L (136-145)
[2018-05-01] MEDS: CARBIDOPA/LEVODOPA 25/100 TAB PO SCH ×4 (08:15→21:00)
[2018-05-01 08:19] LABS: ALBUMIN 3.1 g/dL (3.5-5.0); BILIRUBIN,DIRECT 0.2 mg/dL (0.0-0.5)
[2018-05-01] MEDS ORDERED: NON-FORMULARY MEDICATION (Atorvastatin Calcium (Lipitor) 80 MG) PO SCH (09:00)
[2018-05-01 10:26] LABS: BAND NEUTROPHILS % (MANUAL) 1 %; LYMPHOCYTES % (MANUAL) 16 % (19-48); MONOCYTES % (MANUAL) 9 % (3.4-9.0); NEUTROPHILS % (MANUAL) 51 % (40-74)
[2018-05-01 10:27] LABS: ANISOCYTOSIS SLIGHT; PLATELET ESTIMATE MODERATELY DECREASED; PLATELET MORPHOLOGY COMMENT NORMAL; POIKILOCYTOSIS SLIGHT; RBC MORPHOLOGY COMMENT NORMAL
[2018-05-01] MEDS: SODIUM CHLORIDE 0.9% 1000ML 1,000 ML IV SCH (11:11)
[2018-05-01] MEDS ORDERED: LOSARTAN POTASS25 MG PO (18:43)
[2018-05-01] MEDS: ATORVASTATIN 40 MG TAB PO SCH (21:00)
[2018-05-02] VITALS (7 sets, daily range): BP systolic 138–159; BP diastolic 67–86
[2018-05-02] MEDS: SODIUM CHLORIDE 0.9% 1000ML 1,000 ML IV SCH (05:45)
[2018-05-02] MEDS ORDERED: CARBIDOPA-LEVO1 EAC1 PO (07:11)
[2018-05-02] MEDS ORDERED: FAMOTIDINE20 MG PO (07:11)
[2018-05-02] MEDS ORDERED: METFORMIN HCL500 MG PO (07:11)
[2018-05-02] MEDS: FAMOTIDINE 20 MG TAB PO SCH ×2 (08:30→16:30)
[2018-05-02] MEDS: CARBIDOPA/LEVODOPA 25/100 TAB PO SCH ×3 (08:30→20:15)
[2018-05-02] MEDS: FENOFIBRATE 145 MG TAB PO SCH (08:30)
[2018-05-02] MEDS: ACETAMINOPHEN 325 MG TAB PO PRN (15:16)
[2018-05-02] MEDS: ATORVASTATIN 40 MG TAB PO SCH (20:15)
[2018-05-02] MEDS: METFORMIN HCL 500 MG TAB PO SCH (20:15)
[2018-05-03] VITALS (7 sets, daily range): BP systolic 131–138; BP diastolic 75–87
[2018-05-03] MEDS: FAMOTIDINE 20 MG TAB PO SCH ×2 (07:30→16:30)
[2018-05-03] MEDS: ACETAMINOPHEN 325 MG TAB PO PRN (08:30)
[2018-05-03] MEDS: FENOFIBRATE 145 MG TAB PO SCH (09:00)
[2018-05-03] MEDS: CARBIDOPA/LEVODOPA 25/100 TAB PO SCH ×3 (09:00→20:59)
[2018-05-03] MEDS ORDERED: CYCLOBENZAPRINE HCL 10 MG TAB PO PRN (09:30)
[2018-05-03] MEDS ORDERED: GABAPENTIN 100 MG CAP PO SCH (10:00)
[2018-05-03] MEDS: DULOXETINE HCL 30 MG DELAYED RELEASE PO SCH (12:00)
[2018-05-03] MEDS: ATORVASTATIN 40 MG TAB PO SCH (20:59)
[2018-05-03] MEDS: METFORMIN HCL 500 MG TAB PO SCH (20:59)
[2018-05-03] MEDS: GABAPENTIN 100 MG CAP PO SCH (20:59)
[2018-05-04] VITALS: BP 122/60
[2018-05-04 04:00] VITALS: BP_SYST 116; BP_SYST 127; BP_DIAS 55; BP_DIAS 64
[2018-05-04] MEDS: GABAPENTIN 100 MG CAP PO SCH ×2 (04:49→12:25)
[2018-05-04 08:15] VITALS: BP 126/74
[2018-05-04] MEDS: FAMOTIDINE 20 MG TAB PO SCH ×2 (09:17→15:15)
[2018-05-04] MEDS: FENOFIBRATE 145 MG TAB PO SCH (09:17)
[2018-05-04] MEDS: CARBIDOPA/LEVODOPA 25/100 TAB PO SCH ×2 (09:17→15:15)
[2018-05-04] MEDS: DULOXETINE HCL 30 MG DELAYED RELEASE PO SCH (09:17)
[2018-05-04 12:14] VITALS: BP 117/69
[2018-05-04 13:44] VITALS: BP 117/69
[2018-05-04 16:38] VITALS: BP 117/69
== END 2018-05-04 17:45 | DRG 551 ==
LOC: ER 07:05 → ERHOLD 11:06 → MED/SURG3 13:41
PROVIDERS: ADMIT Internal Medicine; ATTEND Internal Medicine
DX: M48.07 Spinal stenosis, lumbosacral region (principal); G92 Toxic encephalopathy; N17.9 Acute kidney failure, unspecified; F05 Delirium due to known physiological condition; T40.2X5A Adverse effect of other opioids, initial encounter; I10 Essential (primary) hypertension; E78.5 Hyperlipidemia, unspecified; R73.9 Hyperglycemia, unspecified; R74.0 Nonspecific elevation of levels of transaminase and lactic acid dehydrogenase [LDH]; G20 Parkinson's disease; R29.2 Abnormal reflex; G31.89 Other specified degenerative diseases of nervous system; M51.17 Intervertebral disc disorders with radiculopathy, lumbosacral region; M65.88 Other synovitis and tenosynovitis, other site; E66.9 Obesity, unspecified; Z68.35 Body mass index [BMI] 35.0-35.9, adult
CPT/HCPCS: 36415; 70551; 72100; 72141; 72146; 72148; 74177; 80048; 80053; 80061; 80076; 81001; 82550; 82553; 82948; 83036; 83605; 84443; 84484; 85025; 87040; 87086; 97139; 99284; J0696; J1100; J1885; J2270; J2405; J7030; J7040; Q9967

== ENCOUNTER → 2019-08-12 | Day surgery (SDC) | payer MEDICARE ==
[2019-08-10 09:50] LABS: BASOPHILS % 0.3 % (0.0-1.0); EOSINOPHILS # (AUTO) 0.1 (0.0-0.4); EOSINOPHILS % 1.5 % (0.0-6.0); HEMATOCRIT 41.6 % (38.2-49.6); HEMOGLOBIN 13.8 g/dL (14.0-18.0); LYMPHOCYTES # (AUTO) 2.2 (1.0-3.2); LYMPHOCYTES % 36.3 % (18.0-39.1); MEAN CORPUSCULAR HEMOGLOBIN 30.7 pg (28-32); MEAN CORPUSCULAR HGB CONC 33.2 g/dL (31-35); MEAN CORPUSCULAR VOLUME 92.7 fL (81-99); MONOCYTES # (AUTO) 0.4 (0.2-0.8); MONOCYTES % 7.3 % (4.4-11.3); NEUTROPHILS # (AUTO) 3.3 (2.1-6.9); NEUTROPHILS % 54.1 % (38.7-80.0); PLATELET COUNT 247 x10e3/uL (140-360); RED BLOOD COUNT 4.49 x10e6/uL (4.3-5.7); RED CELL DISTRIBUTION WIDTH 13.1 % (11.7-14.4)
[~2019-08-12] MED LIST changes: +AMANTADINE100 MG PO; +CARBIDOPA-LEVO1 EAC1 PO; +FAMOTIDINE20 MG PO; +FENTANYL CITRATE/PF 100MCG/2 ML INJ ONE; +FLOMAX0.4 MG PO; +LIDOCAINE HCL 2% LOCAL INJ 5 ML SDV VIAL INJ ONE; +LIPITOR20 MG PO; +LOSARTAN POTASS25 MG PO; +METFORMIN HCL500 MG PO; +PROPOFOL IV EMULSION 10 MG/ML 50 ML VIAL ONE; +SINEMET 25-1001 EACH PO
[2019-08-12 08:45] VITALS: BP 137/80
== END | disposition home or self-care (01) ==
LOC: OR 05:57
PROVIDERS: ATTEND Internal Medicine Gastroenterology
DX: Z09 Encounter for follow-up examination after completed treatment for conditions other than malignant neoplasm (principal); Z86.010 Personal history of colon polyps; K64.8 Other hemorrhoids; Z71.3 Dietary counseling and surveillance; I10 Essential (primary) hypertension; E66.9 Obesity, unspecified; G20 Parkinson's disease; E78.5 Hyperlipidemia, unspecified; Z88.6 Allergy status to analgesic agent; Z01.810 Encounter for preprocedural cardiovascular examination; Z01.812 Encounter for preprocedural laboratory examination; Z68.33 Body mass index [BMI] 33.0-33.9, adult
CPT/HCPCS: 36415; 45378; 85025; 93005; J2001; J2704; J3010